=== PATIENT | female | born 1995 | race Caucasian/White ===

== ENCOUNTER 2018-01-27 09:33 | Day surgery (SDC) | payer OTHER ==
[2018-01-27] MEDS ORDERED: CEFAZOLIN/Water 2 GM/20 ML SYRINGE ONE (10:06)
[2018-01-27 10:17] LABS: #Basophils 0.1 thou/uL (0.0-0.2); #Eosinphils 0.2 thou/uL (0.0-0.7); #Lymphocytes 1.5 thou/uL (1.20-3.40); #Monocytes 0.3 thou/uL (0.11-0.59); #Neutrophils 4.7 thou/uL (1.40-6.50); %Basophils 0.8 % (0.0-1.0); %Eosinophils 2.6 % (0.0-10.0); %Lymphocytes 22.2 % (21.0-51.0); %Monocytes 4.5 % (0.0-10.0); %Neutrophils 69.8 % (42.0-75.0); Hemoglobin 13.1 g/dL (12.0-16.0); Mean Corpuscular HGB CONC 34.3 g/dL (32.0-36.0); Mean Corpuscular Hemoglobin 32.1 pg (27.0-31.0); Mean Corpuscular Volume 93.7 fl (81.0-99.0); Platelet Count 247 thou/uL (130-400); RBC Distribution Width 11.6 % (11.5-14.5); Red Blood Cell (RBC) Count 4.07 mill/uL (4.20-5.40); White Blood Cell (WBC) Count 6.8 thou/uL (4.8-10.8)
--- NOTE | 2018-01-27 10:32 | RAD ---
PORTABLE CHEST 1 VIEW: DATE: 01/27/18. TIME: 10:07 a.m. HISTORY: Preoperative evaluation. Leg laceration. FINDINGS: The heart size is normal. The lungs are expanded without focal areas of consolidation, pneumothorax, or pleural effusions. IMPRESSION: No radiographic evidence of acute cardiopulmonary process. POS: [facility]
[2018-01-27] MEDS ORDERED: Fentanyl 100 MCG/2 ML VIAL ONE ×3 (10:35→14:28)
--- NOTE | 2018-01-27 10:46 | RAD ---
RIGHT FEMUR 2 VIEWS: Date: 01/27/18 INDICATION: Laceration injury, pain. FINDINGS: There is a large soft tissue defect of the lateral proximal to mid right thigh. No underlying osseous abnormality of the femur is evident. IMPRESSION: Soft tissue injury of the right thigh. No underlying fracture of the right femur. POS: [facility]
[2018-01-27 10:53] LABS: Albumin 3.6 g/dL (3.5-5.0); Calcium 8.7 mg/dL (7.8-10.44); Carbon Dioxide 16 mmol/L (22-29); Chloride 109 mmol/L (98-107); Globulin 3.4 g/dL (2.4-3.5); Glucose 102 mg/dL (70-105); Potassium 4.4 mmol/L (3.5-5.1); Sodium 135 mmol/L (136-145)
[2018-01-27 10:54] LABS: ALT (SGPT) 22 U/L (8-55); AST (SGOT) 31 U/L (5-34); Alkaline Phosphatase 58 U/L (40-150); Anion Gap 14 mmol/L (10-20); BUN (Urea Nitrogen) 16 mg/dL (7.0-18.7); Bilirubin, Total 0.5 mg/dL (0.2-1.2); Calc. Creatinine Clearance 0 mL/min (70-130); Estimated GFR-MDRD 85
[2018-01-27 11:57] LABS: BHCG - Serum Negative (NEGATIVE); Pregs Control Background? CLEAR/WHITE (CLR/WHITE); Pregs Control Bar Appear? YES (CONTROL BAR)
[2018-01-27] MEDS ORDERED: traMADol HCl 50 MG TAB PO PRN (12:07)
[2018-01-27] MEDS ORDERED: Dextrose 50% Abboject 50 ML SYRINGE SLOW IVP PRN (12:07)
[2018-01-27] MEDS ORDERED: Ondansetron ODT 4 MG TAB PO PRN (12:07)
[2018-01-27] MEDS ORDERED: Ondansetron HCl/PF 4 MG/2 ML Vial IVP PRN (12:07)
[2018-01-27] MEDS ORDERED: Dextrose 5% in Water 1,000 ML IV PRN (12:07)
[2018-01-27] MEDS ORDERED: Acetaminophen 500 MG TAB PO SCH (12:15)
[2018-01-27] MEDS ORDERED: Sodium Chloride 0.9% 1,000 ML IV SCH (12:15)
[2018-01-27] MEDS ORDERED: traMADol HCl 50 MG TAB PO SCH (12:15)
[2018-01-27] MEDS ORDERED: Piperacillin/Tazobactam 3.375 GM VIAL ONE (12:17)
[2018-01-27] MEDS ORDERED: Midazolam HCl 2 mg/2 ml Vial ONE (12:39)
[2018-01-27] MEDS ORDERED: Neomycin-Polymyxin 1 ML AMP ONE (12:47)
[2018-01-27] MEDS ORDERED: ePHEDrine/0.9% NaCl/PF SYRINGE 50 mg/10 ml ONE (13:12)
[2018-01-27] MEDS ORDERED: Ketorolac Tromethamine 30 MG/ML VIAL ONE (13:12)
[2018-01-27] MEDS ORDERED: Succinylcholine Chloride 20 MG/ML 10 ml SYRINGE FS ONE (13:12)
[2018-01-27] MEDS ORDERED: PROPOFOL 200 MG/20 ML VIAL ONE (13:12)
[2018-01-27] MEDS ORDERED: Lidocaine 1% PF 5 ML VIAL ONE (13:12)
--- NOTE | 2018-01-27 13:12 | HP ---
DATE OF ADMISSION: 01/27/2018 ATTENDING PHYSICIAN: Dr. Brothers. TRAUMA ACTIVATION: Level 2. HISTORY OF PRESENT ILLNESS: Ariana Buchanan is a 22-year-old female, who presented to [facility] , status post animal-inflicted penetrating wound to the right lateral thigh. The patient was seen an d evaluated by the emergency room team and found to have a large deep wound on her right lateral thig h without evidence of any bony fracture. 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 Upon our evaluation, the patient has a chief complaint of right eye pain rated as a 5 /10. She has recently received fentanyl for pain. The patient states that her tetanus is up-to-date and is less than 5 years old. She has received Ancef. PAST MEDICAL HISTORY: None. ALLERGIES: None. HOME MEDICATIONS: None. PAST SURGICAL HISTORY: Patient denies. CHRONIC MEDICAL ILLNESSES: Patient denies. 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 She endorses o ccasional alcohol use. Denies tobacco or illicit drug use. FAMILY HISTORY: Significant for a father with hypertension. Maternal grandmother with breast cancer and paternal grandfather with colon cancer. PHYSICAL EXAMINATION: MOST RECENT VITAL SIGNS: Blood pressure 133/84, pulse 90, respirations 16, O2 sat 98% on room air, t emperature 98.5. GENERAL: A well-developed, well-nourished female, in no acute distress, resting in bed. HEAD: Normocephalic, atraumatic. EYES: Pupils are PERRL. Extraocular movements are intact. NECK: Supple. Trachea is midline. CHEST: Atraumatic, nontender to palpation. Normal work of breathing, symmetric rise. Lungs are ozzy ar to auscultation bilaterally. CARDIOVASCULAR: Regular rate and rhythm, no obvious murmurs, rubs, or gallops. GASTROINTESTINAL: Abdomen is soft, nontender, nondistended, appears atraumatic. Bowel sounds are po sitive. MUSCULOSKELETAL: Back exam is reported as being within normal limits. Bilateral upper extremities w ithin normal limits. Left lower extremity within normal limits. Right lower extremity with a deep f ull thickness laceration of the right lateral thigh, approximately 17 cm long. Very little venous oo zing and drainage noted. NEUROLOGIC: GCS of 15. No focal deficit is noted. LABORATORY FINDINGS: Beta hCG is negative. WBC 6.8, hemoglobin 13.1, hematocrit 38.2, platelet coun t 247. Sodium 135, potassium 4.4, chloride 109, carbon dioxide 16, BUN 16, creatinine 0.83, glucose is 102, AST and ALT within normal limits. RADIOLOGIC FINDINGS: Chest x-ray was without acute traumatic injury or acute cardiopulmonary process . X-ray of the right femur was without any bony abnormality or fracture, but there was evidence of s oft tissue defect per Radiology read. ASSESSMENT: 1. Status post penetrating trauma to the right thigh secondary to animal tusk. 2. Large soft tissue/deep right thigh wounds. 3. Acute traumatic pain. PLAN: 1. Admit to Trauma Services. The patient will be taken to the operating room for operative interven tion to her right lower extremity with final disposition of the wound to be determined in the operati ng room. The patient should receive Zosyn 3.375 grams now and to be continued postoperatively at thi s time. N.p.o. Perioperative pain management. 2. Deep vein thrombosis and gastritis prophylaxis more appropriate. The patient was seen and evaluated with Dr. Brothers concurrently. Plan for admission were discussed wi th the patient and family and friends at bedside. All questions were answered at the time of this di ctation.
[2018-01-27] MEDS ORDERED: Ibuprofen 600 MG TAB PO SCH (14:00)
[2018-01-27] MEDS ORDERED: Ondansetron ODT 4 MG TAB ONE (15:18)
[2018-01-27] MEDS ORDERED: Promethazine HCl 25 MG/ML VIAL ONE (15:38)
[2018-01-27] MEDS ORDERED: HYDROcodone/Acetaminophen 5/325 mg Tablet ONE (17:28)
[2018-01-27] MEDS ORDERED: Piperacillin/Tazobactam 3.375 GM in Sodium Chloride 0.9% 100 ML IVPB SCH (18:00)
[2018-01-27] MEDS ORDERED: Famotidine 20 MG TAB PO SCH (21:00)
--- NOTE | 2018-01-27 23:37 | OP ---
DATE OF OPERATION: 01/27/2018 PREOPERATIVE DIAGNOSIS: Complex 20 x 3.5 x 5 cm right thigh laceration. POSTOPERATIVE DIAGNOSIS: Complex 20 x 3.5 x 5 cm right thigh laceration. PROCEDURES PERFORMED: Debridement and irrigation of complex right thigh wound and closure of 20 x 3. 5 x 5 cm complex right thigh wound. SURGEON: Gilbert Brothers D.O. ANESTHESIA: General endotracheal. ESTIMATED BLOOD LOSS: 10 mL. FLUIDS GIVEN: 1000 mL crystalloids. SPONGE AND INSTRUMENT COUNT: Certified as correct x2. COMPLICATIONS: None apparent. INDICATIONS FOR PROCEDURE: This is a 22-year-old woman who was injured by domesticated boar. The patient suffered a bite laceration proximal right thigh measuring 20 x 3.5 x 5 cm. Fascia was ex posed, but muscle not violated. DESCRIPTION OF PROCEDURE: Informed consent obtained from the patient who was brought to the operatin g room and placed in supine position. Following general anesthesia, the patient was placed in a late ral recumbent position. The wound was then sterilely prepped and draped in the usual fashion. He used 4 liters of sterile sa line to pulse lavage the entire wound cavity. The nonviable fatty tissues were debrided using cauter y with good hemostasis. Once adequate hemostasis was achieved, deep tissues were approximated in layers using interrupted sut ures of 2-0 Vicryl. Skin incision was closed using jamie. Sterile dressings were applied. The patient tolerated the operation without any apparent complication and was returned to recovery ro in a satisfactory condition.
== END 2018-01-27 17:40 | disposition home or self-care (01) ==
LOC: ERS 09:33
PROVIDERS: ATTEND Physician Assistant
PROC: 0JQL0ZZ Repair Right Upper Leg Subcutaneous Tissue and Fascia, Open Approach (ICD-10-PCS; principal; 2018-01-27)
DX: S71.111A Laceration without foreign body, right thigh, initial encounter (principal); W55.42XA Struck by pig, initial encounter; Y92.214 College as the place of occurrence of the external cause; Y99.0 Civilian activity done for income or pay; G89.11 Acute pain due to trauma; Z79.3 Long term (current) use of hormonal contraceptives
CPT/HCPCS: 71045; 80053; 84703; 85025; 93005; 96374; G0390; J1885; J2001; J2250; J2543; J2550; J2704; J3010; Q0162

== ENCOUNTER 2018-02-01 15:33 | Outpatient (CLI) | payer OTHER ==
--- NOTE | 2018-02-01 18:38 | ULT ---
RIGHT LOWER EXTREMITY VENOUS DOPPLER WITH SPECTRAL ANALYSIS AND COLOR FLOW EVALUATION: 02/01/18 HISTORY: Patient with history of recent trauma and surgery. Patient now has right lower extremity swelling and pain. FINDINGS: Bell scale, color flow, doppler evaluation, and spectral analysis of the right lower extremity venous structures is performed with 2D imaging. The right lower extremity common femoral, superficial femor al, popliteal, posterior tibial, most proximal greater saphenous and profunda femoral veins are image d. There is increased luminal echogenicity with decreased lumen compressibility and diminished flow with in the right lower extremity popliteal vein consistent with nonocclusive DVT. There is absence of candelario w demonstrated within the mid right lower extremity posterior tibial vein which also demonstrates lac k of lumen compressibility consistent with occlusive DVT at this level. There is normal lumen compressibility and flow seen in the remaining visualized deep venous structure s of the right lower extremity. IMPRESSION: 1. Nonocclusive DVT right lower extremity popliteal vein with occlusive DVT in the mid right pos terior tibial vein. 2. Above findings discussed with Dr. Brothers on 02/01/[address] Brothers requested the dominguez ent be sent to the Emergency Department for further treatment and management. POS: [facility]
== END 2018-02-01 15:34 | disposition home or self-care (01) ==
LOC: ULT 15:33
PROVIDERS: ATTEND Surgery
DX: S89.91XA Unspecified injury of right lower leg, initial encounter (principal); R22.9 Localized swelling, mass and lump, unspecified; I82.431 Acute embolism and thrombosis of right popliteal vein; I82.441 Acute embolism and thrombosis of right tibial vein

== ENCOUNTER 2018-02-01 16:37 | Emergency (ER) | payer OTHER ==
[2018-02-01 17:09] LABS: #Basophils 0.1 thou/uL (0.0-0.2); #Eosinphils 0.3 thou/uL (0.0-0.7); #Lymphocytes 1.7 thou/uL (1.20-3.40); #Monocytes 0.5 thou/uL (0.11-0.59); #Neutrophils 5.8 thou/uL (1.40-6.50); %Basophils 0.6 % (0.0-1.0); %Eosinophils 3.2 % (0.0-10.0); %Monocytes 5.6 % (0.0-10.0); %Neutrophils 69.5 % (42.0-75.0); Hemoglobin 13.8 g/dL (12.0-16.0); Mean Corpuscular HGB CONC 32.7 g/dL (32.0-36.0); Mean Corpuscular Hemoglobin 30.8 pg (27.0-31.0); Mean Corpuscular Volume 94.3 fl (81.0-99.0); Platelet Count 267 thou/uL (130-400); RBC Distribution Width 11.4 % (11.5-14.5); Red Blood Cell (RBC) Count 4.46 mill/uL (4.20-5.40); White Blood Cell (WBC) Count 8.3 thou/uL (4.8-10.8)
[2018-02-01 17:26] LABS: Anion Gap 15 mmol/L (10-20); BUN (Urea Nitrogen) 17 mg/dL (7.0-18.7); Calc. Creatinine Clearance 0 mL/min (70-130); Calcium 9.8 mg/dL (7.8-10.44); Carbon Dioxide 26 mmol/L (22-29); Chloride 102 mmol/L (98-107); Estimated GFR-MDRD 81; Glucose 89 mg/dL (70-105); Potassium 4.2 mmol/L (3.5-5.1); Sodium 139 mmol/L (136-145)
[2018-02-01] MEDS ORDERED: AMOXicillin 250 MG CAP ONE (17:35)
[2018-02-01] MEDS ORDERED: Amoxicillin/Potassium Clav 250 MG TAB ONE (17:47)
[2018-02-01] MEDS ORDERED: Amoxicillin/Potassium Clav 500 MG TAB PO SCH (18:00)
[2018-02-01] MEDS ORDERED: Rivaroxaban 15 MG TAB PO SCH (18:00)
== END 2018-02-01 18:55 | disposition home or self-care (01) ==
LOC: ERS 16:37
DX: I82.4Z1 Acute embolism and thrombosis of unspecified deep veins of right distal lower extremity (principal)
CPT/HCPCS: 36415; 80048; 85025; 99283